=== PATIENT | male | born 1995 | race African-American/Black ===

== ENCOUNTER 2019-02-04 20:15 | Emergency (ER) | payer BC, OTHER ==
[~2019-02-04] VITALS: Ht 170.2 cm; Wt 79.8 kg
[~2019-02-04 20:15] MED LIST: CLIN300C10 PO; IBUP-1542 PO
[2019-02-04 20:21] VITALS: Ht 170.2 cm; Wt 79.8 kg
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
[2019-02-04] MEDS ORDERED: DIPHTH/TET/ACEL PERTUSS (ADULT) 0.5 ML VIAL IM* ONE (21:30)
[2019-02-04] MEDS ORDERED: SOD CHLORIDE 0.9% 100 ML ONE (22:03)
[2019-02-04] MEDS ORDERED: IOHEXOL 300MG/ML 150 ML BTL ONE (22:03)
[2019-02-04 23:18] VITALS: BP 130/81; PULSE 81; RESP 18
== END 2019-02-04 23:18 | disposition home or self-care (01) ==
LOC: E/R 20:15
DX: S06.0X0A Concussion without loss of consciousness, initial encounter (principal); R40.2142 Coma scale, eyes open, spontaneous, at arrival to emergency department; R40.2362 Coma scale, best motor response, obeys commands, at arrival to emergency department; R40.2252 Coma scale, best verbal response, oriented, at arrival to emergency department; S00.83XA Contusion of other part of head, initial encounter; S02.5XXA Fracture of tooth (traumatic), initial encounter for closed fracture; Y04.0XXA Assault by unarmed brawl or fight, initial encounter; Z23 Encounter for immunization
CPT/HCPCS: 70450; 70486; 71260; 72125; 74177; 80053; 83690; 85025; 85610; 85730; Q9967; Z7610; 36415; 90471